=== PATIENT | female | born 1945 | race American Indian/Alaskan Native ===

== ENCOUNTER 2018-02-01 07:47 | Day surgery (SDC) | payer MEDICARE ==
[2018-02-01] MEDS ORDERED: ECOTRIN PO NR (08:13)
[2018-02-01 08:55] LABS: Basophils % (Auto) 0.3 % (0.0-1.8); Eosinophils % (Auto) 0.9 % (0.0-4.3); Hemoglobin 12.9 gm/dl (10.1-14.3); Lymphocytes # (Auto) 1.8 K/mm3 (1.2-5.4); Lymphocytes % (Auto) 37.5 % (13.4-35.0); Mean Corpuscular HGB Conc 33 % (30-34); Mean Corpuscular Hemoglobin 30 pg (28-32); Mean Corpuscular Volume 91 fl (79-97); Monocytes # (Auto) 0.4 K/mm3 (0.0-0.8); Monocytes % (Auto) 8.8 % (0.0-7.3); Platelet Count 212 K/mm3 (140-440); Red Blood Count 4.28 M/mm3 (3.65-5.03); Red Cell Distribution Width 13.7 % (13.2-15.2)
[2018-02-01] MEDS ORDERED: NACL 0.9% 500 ML 500 ML IV SCH (09:00)
[2018-02-01 09:05] LABS: BUN/Creatinine Ratio 20; Blood Urea Nitrogen 12 mg/dL (7-17); Calcium 10.5 mg/dL (8.4-10.2); Hemolysis Index 51
[2018-02-01 09:22] LABS: INR 0.99 (0.87-1.13)
[2018-02-01] MEDS ORDERED: CALAN ONE (11:16)
[2018-02-01] MEDS ORDERED: HEPARIN/NS 5000 UNIT/500ML(CATH LAB) 1,000 ML IR ONE (11:16)
[2018-02-01] MEDS ORDERED: HEPARIN 10,000 UNITS/10 ML ONE (11:16)
[2018-02-01] MEDS ORDERED: NITROGLYCERIN SYRINGE 0 ML ONE (11:17)
[2018-02-01] MEDS ORDERED: XYLOCAINE 2% INFILTRATI ONE (11:17)
[2018-02-01] MEDS ORDERED: SUBLIMAZE ONE (11:41)
[2018-02-01] MEDS ORDERED: VERSED ONE (11:41)
--- NOTE | 2018-02-01 12:42 | Cardiac Catherization Report ---
INDICATION FOR PROCEDURE: The patient a 72-year-old -[place] female with history of hypertension, atypical chest pain, and abnormal EKG with underlying left bundle branch who was noted to have abnormal nuclear imaging, namely evidence of mid apical and mid anteroseptal defect. This is a mild defect. However, because of her symptoms of chest pain, abnormal EKG, and atrial arrhythmias, she was scheduled for cardiac catheterization for definitive diagnosis and treatment. The patient is aware of the procedure, potential complications, and the alternatives of therapy available. DESCRIPTION OF PROCEDURE: The patient was brought to the catheterization laboratory in a fasting condition. The right wrist area and forearm thoroughly cleansed with Betadine solution. Sterile drapes were applied. Local anesthesia was achieved using 2% Xylocaine. Right radial artery puncture was made using 21-gauge arterial puncture needle. Subsequently, 5-[place] sheath was introduced. The patient received 5 mg of intra-arterial verapamil and 3000 units of intravenous heparin. Subsequently, using 5-[place] multipurpose catheter angiograms of left coronary artery were obtained in multiple views. Subsequently, 5-[place] JL4 catheter was used to obtain the left ventriculogram done in GEORGE projection followed by angiograms of the right coronary artery in multiple views. At the end of the procedure, catheter and sheath were removed. Prior to starting the procedure, the patient was evaluated for appropriateness for moderate sedation and when it was felt appropriate, the patient was sedated with IV Versed and fentanyl. Sedation was started at 11:53 a.m. and monitored with EKG, noninvasive blood pressure monitoring, and pulse oximetry up to 12:06 a.m. The patient tolerated the sedation well. At the end of the procedure, no complications were noted. The patient was transferred to the recovery area in a stable condition. The patient will be monitored for next few hours. When she is stable, she will be discharged home and will be followed as an outpatient and will be continued on medical therapy. Findings were explained to the patient and daughter. Following findings were noted: HEMODYNAMICS: 1. Opening aortic pressure 160/86. Left ventricular pressure 179/30, no gradient across the aortic valve. Estimated ejection fraction 55%. 2. Left ventriculogram done in GEORGE projection showed normal sized left ventricle with normal contractility. End-diastolic and systolic volumes are normal. Mitral regurgitation could not be evaluated because of limited amount of dye injected. 3. Right coronary artery dominant artery arises normally from right coronary cusp, angiographically smooth and normal. 4. Left coronary artery arises normally from left coronary cusp. Left main is long, smooth, and normal. LAD shows minimal smooth irregularities, otherwise LAD and its branch without significant disease. Similarly circumflex artery angiographically smooth and normal. FINAL IMPRESSION: 1. Normal sized left ventricle with normal contractility. 2. Essentially normal coronary anatomy. 3. The patient tolerated the procedure well. Right radial artery access was used. No untoward complications were noted. The patient will be continued on risk factor modification and medical therapy. JOB# [id number] JAYSON/RENETTA
[2018-02-01 14:18] VITALS: BP 139/66
== END 2018-02-01 14:35 | disposition home or self-care (01) ==
LOC: CATHLABREC 07:47
PROVIDERS: ATTEND Internal Medicine
DX: R07.89 Other chest pain (principal); I44.7 Left bundle-branch block, unspecified; I10 Essential (primary) hypertension
CPT/HCPCS: 36415; 80048; 85025; 85610; 85730; 93005; 93010; 93458; 99156; C1894; J1644; J2250; J3010; J7040; Q9967